=== PATIENT | female | born 2000 | race Two or more races ===

== ENCOUNTER 2022-07-21 14:49 | Emergency (ER) | payer SELFPAY ==
[~2022-07-21] VITALS: Ht 172.7 cm; Wt 81.8 kg
[2022-07-21 15:52] LABS: Urine Bacteria NONE SEEN /hpf (None Seen); Urine Blood 1+ /uL (Negative); Urine Hyaline Cast FEW /lpf (0 - 2); Urine Mucus FEW (None Seen); Urine Specific Gravity 1.016 (1.001-1.035); Urine WBC 99 /hpf (0 - 5)
[2022-07-21] MEDS ORDERED: BACDST PO (16:14)
[2022-07-21] MEDS ORDERED: ACETAMINOPHEN 500 MG TAB PO ONE (16:15)
[2022-07-21 16:29] VITALS: BP 137/91
== END 2022-07-21 16:32 | disposition home or self-care (01) ==
LOC: ER 14:49
DX: N39.0 Urinary tract infection, site not specified (principal)
CPT/HCPCS: 76856; 81001; 81025

== ENCOUNTER 2025-10-31 22:15 | Emergency (ER) | payer SELFPAY ==
[~2025-10-31] VITALS: Ht 172.7 cm; Wt 110.4 kg
[~2025-10-31 22:15] MED LIST: BACDST PO
[2025-11-01 00:18] VITALS: BP 144/90; PULSE 56; RESP 16; TEMP 98.4; O2SAT 100
--- NOTE | 2025-11-01 00:18 | ED.PDOC ---
History of Present Illness(SKN HPI Comments Pt presents with cc of abscess to her left breast since May. PT has not received medical treatment for it yet. She reports it opened and has been draining since August. Pt reports redness and swelling around the abscess. Chief Complaint: Abscess Time Seen by MD: 22:24 Primary Care Provider: UNKNOWN History of Present Illness: Nurses Notes, Medications, Allergies Allergies: Coded Allergies: NO KNOWN ALLERGIES (Unverified , 07/21/22) Home Meds Active Scripts Doxycycline Hyclate (Doxycycline Hyclate) 100 Mg Cap, 100 MG PO BID for 7 Days, #14 CAP Prov:RONALD GARCIA STOCK WORKER 11/01/25 Sulfamethoxazole W/Trimethopri (Bactrim Ds Tablet) 1 Tab Tb, 1 TAB PO BID for 10 Days, #20 TAB Prov:VENKAT DUDLEY 07/21/22 Information Source: Patient Mode of Arrival: Ambulatory Past Medical History PAST MEDICAL HISTORY: Denies Surgical History: Denies all surgeries GRINDING OPERATOR History: No Pertinent GRINDING OPERATOR History Family History Family History: Reviewed,noncontributory to illness Social History Smoker: Non-Smoker Alcohol: Occasionally Drugs: Denies Drug Use Lives In: Home All Other Systems: Reviewed and Negative (see hpi) Physical Exam General Appearance: No Apparent Distress, Normal HEENT: Pharynx Normal Neck: Full Range of Motion, Non-Tender Respiratory: Lungs Clear, No Respiratory Distress, Normal Breath Sounds Cardiovascular: No Edema, No JVD, No Murmur, No Gallop, Normal Peripheral Pulses, Regular Rate/Rhythm Breast Exam: Deferred Gastrointestinal: Non Tender, Soft Genitalia: Deferred Pelvic: Deferred Rectal: Deferred Extremities: Normal range of motion Musculoskeletal : Apperance: Normal Neurologic: Alert, No Motor Deficits, Normal Affect, Normal Mood, No Sensory Deficits Cerebellar Function: Normal Reflexes: NOT DONE Skin: Dry, Normal Color, Rash (Environmental Journalist present. Patient with nickel size cellulitic patch no palpable abscess no noted drainage no noted streaking), Warm Lymphatic: No Adenopathy Was a procedure done? Was a procedure done?: No Differential Diagnosis (INTG) Differential Diagnosis: Abrasion, Cellulitis, Hematoma, Puncture Wound Differential Diagnosis: Abscess X-Ray, Labs, Meds, VS Vital Signs Date Time Temp Pulse Resp B/P (MAP) Pulse Ox O2 Delivery O2 Flow Rate FiO2 11/01/25 00:18 98.4 56 16 144/90 (108) 100 98.4 11/01/25 00:18 56 16 100 Room Air 10/31/25 22:16 98.0 58 16 157/82 100 98.0 Time of 1ST Reevaluation: 22:24 Reevaluation 1ST: Unchanged Time of 2ND Reevaluation: 00:18 Reevaluation 2ND: Improved Patient Education/Counseling: Diagnosis, Treatment, Need For Follow Up Family Education/Counseling: No Family Present SEPSIS Sepsis Screen Date sepsis recognized/suspect: Oct 31, 2025 Time Sepsis recognized/suspect: 2218 Recent Procedure: No On Antibiotic Therapy: No Respiratory Rate >20: No Heart Rate >90: No Temp<36 C (96.8 F) or >38.3 C: No SBP <90 or MAP <65 mmHG: No New Acute Mental Status Change: No Is the patient on CPAP, BIPAP,: No Vital Signs Date Time Temp Pulse Resp B/P (MAP) Pulse Ox O2 Delivery O2 Flow Rate FiO2 11/01/25 00:18 98.4 56 16 144/90 (108) 100 98.4 11/01/25 00:18 56 16 100 Room Air 10/31/25 22:16 98.0 58 16 157/82 100 98.0 Departure 1 Departure Time of Disposition: 00:18 Impression: Primary Impression: Abscess Disposition: 01 HOME / SELF CARE / HOMELESS Condition: Stable e-Prescriptions Doxycycline Hyclate (Doxycycline Hyclate) 100 Mg Cap 100 MG PO BID for 7 Days, #14 CAP Prov: RONALD GARCIA 11/01/25 Discharged With: Self Critical Care Note Critical Care Time?: No Stability Stability form required: RONALD Card Nov 01, 2025 00:18
[2025-11-01] MEDS ORDERED: DOXY100C4 PO (00:21)
== END 2025-11-01 00:33 | disposition home or self-care (01) ==
LOC: ER 22:15
DX: N61.1 Abscess of the breast and nipple (principal); F10.90 Alcohol use, unspecified, uncomplicated; Z79.899 Other long term (current) drug therapy